=== PATIENT | male | born 1985 | race American Indian/Alaskan Native ===

== ENCOUNTER 2019-01-14 12:18 | Emergency (ER) | payer SELFPAY ==
--- NOTE | 2019-01-14 12:29 | Emergency Department Report ---
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 This initial assessment/diagnostic orders/clinical plan/treatment(s) is/are subject to change based on patient's health status, clinical progression and re-assessment by fellow clinical providers in the ED. Further treatment and workup at subsequent clinical providers discretion. Patient/guardians urged not to elope from the ED as their condition may be serious if not clinically assessed and managed. Initial orders include: 1- Patient sent to [facility] for further evaluation and treatment 2- xrays
--- NOTE | 2019-01-14 13:24 | XRay Report ---
LEFT FOOT, 3 views: History: Pain in second digit of left foot. The bony architecture is intact. Bony alignment is normal. No soft tissue abnormalities are seen. The joint spaces appear preserved. IMPRESSION: Normal left foot.
--- NOTE | 2019-01-14 13:25 | XRay Report ---
RIGHT HAND, 3 views: History: Swelling in second digit of right hand. The bony architecture is intact. Bony alignment is normal. No soft tissue abnormalities are seen. The joint spaces appear preserved. IMPRESSION: Normal right hand.
--- NOTE | 2019-01-14 13:28 | Emergency Department Report ---
ED Upper Extremity Inj HPI - General Chief Complaint: Extremity Injury, Upper Stated Complaint: (L) TOE/ (R) INDEX FINGER PAIN Time Seen by Provider: 01/14/19 12:27 Source: patient Mode of arrival: Ambulatory Limitations: No Limitations - History of Present Illness Initial Comments: This is a 33-year-old female who presents to the emergency room with left foot second right finger pain from injury 2 days ago. Patient states he was riding on a perez board when he his second toe on the left foot. He reports pain as 3 out of 10 on pain scale worse with weightbearing or movement. Patient states he was concerned of possible fracture. He is also complaining of second finger on right hand being jammed. 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 Patient states yesterday he was unable to bend finger without locking in position. Today he has full range of motion without locking. Complaint: Injury to:: right, finger Onset/Timin -: days(s) Other Extremity Injury: Fingers: Right (2nd finger) Other Injuries: LLE Handedness: right Place: outdoors Severity scale (0 -10): 3 Improves With: none Worsens With: movement of extremity Context: direct blow Associated Symptoms: denies other symptoms Treatments Prior to Arrival: NSAIDS - Related Data Previous Rx's Medication Instructions Recorded Last Taken Type Cyclobenzaprine [Flexeril] 10 mg PO BID PRN #10 tablet 06/17/16 Unknown Rx Ibuprofen [Motrin] 600 mg PO Q8H PRN #20 tablet 06/17/16 Unknown Rx Naproxen [Naprosyn] 500 mg PO TID PRN #20 tablet 01/14/19 Unknown Rx Allergies Allergy/AdvReac Type Severity Reaction Status Date / Time No Known Allergies Allergy Unverified 01/14/19 12:22 ED Review of Systems ROS: Stated complaint: (L) TOE/ (R) INDEX FINGER PAIN Other details as noted in HPI Constitutional: denies: chills, fever Respiratory: denies: cough, shortness of breath, wheezing Cardiovascular: denies: chest pain, palpitations Gastrointestinal: denies: abdominal pain, nausea, diarrhea Musculoskeletal: arthralgia (pain to right 2nd digit and left 2nd toe). denies: back pain, joint swelling Skin: denies: rash, lesions Neurological: denies: headache, weakness, paresthesias Psychiatric: denies: anxiety, depression ED Past Medical Hx - Past Medical History Previous Medical History?: No - Surgical History Past Surgical History?: No - Social History Smoking Status: Current Every Day Smoker Substance Use Type: Marijuana - Medications Home Medications: Home Medications Medication Instructions Recorded Confirmed Last Taken Type Cyclobenzaprine [Flexeril] 10 mg PO BID PRN #10 tablet 06/17/16 Unknown Rx Ibuprofen [Motrin] 600 mg PO Q8H PRN #20 tablet 06/17/16 Unknown Rx Naproxen [Naprosyn] 500 mg PO TID PRN #20 tablet 01/14/19 Unknown Rx ED Physical Exam - General Limitations: No Limitations General appearance: alert, in no apparent distress - Respiratory Respiratory exam: Present: normal lung sounds bilaterally. Absent: respiratory distress - Cardiovascular Cardiovascular Exam: Present: regular rate, normal rhythm. Absent: systolic murmur, diastolic murmur, rubs, gallop - GI/Abdominal GI/Abdominal exam: Present: soft, normal bowel sounds - Expanded Upper Extremity Exam Right Forearm Wrist exam: Present: normal inspection, full ROM Hand Wrist exam: Present: normal inspection, full ROM Neuro motor exam: Present: wrist extension intact, thumb opposition intact, thumb IP flexion intact, thumb adduction intact, fingers 2-5 abduction intact Neurosensory exam: Present: radial nerve intact, ulnar nerve intact, median nerve intact Vascular: Present: normal capillary refill, radial pulse - Expanded Lower Extremity Exam Left Lower Leg exam: Present: normal inspection, full ROM Ankle exam: Present: normal inspection, full ROM Foot/Toe exam: Present: normal inspection, full ROM. Absent: tenderness, swelling, abrasion, laceration, ecchymosis, deformity, crepidus, dislocation, erythema, amputation, puncture wound, foreign body, calcaneal tenderness, tenderness at base of 5th metatarsal, nail avulsion, subungual hematoma Neuro vascular tendon exam: Present: no vascular compromise Gait: Positive: observed and normal - Neurological Exam Neurological exam: Present: alert, oriented X3 - Psychiatric Psychiatric exam: Present: normal affect, normal mood - Skin Skin exam: Present: warm, dry, intact, normal color. Absent: rash ED Course Vital Signs 01/14/19 01/14/19 12:28 13:40 Temperature 98.5 F Pulse Rate 71 58 L Respiratory 16 16 Rate Blood Pressure 150/103 Blood Pressure 130/91 [Right] O2 Sat by Pulse 98 100 Oximetry ED Medical Decision Making - Radiology Data Radiology results: report reviewed RIGHT HAND, 3 views: History: Swelling in second digit of right hand. The bony architecture is intact. Bony alignment is normal. No soft tissue abnormalities are seen. The joint spaces appear preserved. IMPRESSION: Normal right hand. LEFT FOOT, 3 views: History: Pain in second digit of left foot. The bony architecture is intact. Bony alignment is normal. No soft tissue abnormalities are seen. The joint spaces appear preserved. IMPRESSION: Normal left foot. - Medical Decision Making Patient was examined by me. Patient is in no acute distress. Blood pressure elevated on arrival and asymptomatic. Obtained a x-rays of the left foot and right hand. X-rays dictated by radiologist and no acute findings. Normal focal exams. Patient informed of results and symptoms may be related to muscle strain. Start naproxen for pain. Plan discussed with patient to discharge home and treat outpatient. He agrees with ER plan. Patient discharged home in stable condition. Follow up with PCP in 2-3 days. Critical care attestation.: If time is entered above; I have spent that time in minutes in the direct care of this critically ill patient, excluding procedure time. ED Disposition Clinical Impression: Toe pain, left, Asymptomatic hypertension Right trigger finger Qualifiers: Trigger finger location: index finger Qualified Code(s): M65.321 - Trigger finger, right index finger Disposition: TO HOME OR SELFCARE Is pt being admited?: No Does the pt Need Aspirin: No Condition: Stable Instructions: Trigger Finger (ED), Hypertension (ED), Arthralgia (ED) Additional Instructions: Rest Use ice or heat on affected area for 20 minutes and off for 2 hours. Take pain medication every 6 hours as needed for pain. Follow up with Primary Care Provider in 2-3 days. Prescriptions: Naproxen [Naprosyn] 500 mg PO TID PRN #20 tablet PRN Reason: Pain , Severe (7-10) Referrals: [facility] [Outside] - 3-5 Days [facility] [Outside] - 3-5 Days [facility] [Outside] - 3-5 Days Forms: Work/School Release Form(ED) Time of Disposition: 13:35
[2019-01-14 13:41] VITALS: BP 130/91
== END 2019-01-14 14:00 | disposition home or self-care (01) ==
LOC: ED 12:18
DX: M65.321 Trigger finger, right index finger (principal); M79.675 Pain in left toe(s); I10 Essential (primary) hypertension; F17.200 Nicotine dependence, unspecified, uncomplicated; F12.10 Cannabis abuse, uncomplicated